=== PATIENT | male | born 1965 | race Caucasian/White ===

== ENCOUNTER 2023-01-04 11:21 | Inpatient (IN) | payer MEDICARE, OTHER ==
[2023-01-04] MEDS ORDERED: Heparin 10,000 UNITS/ 10 ML VIAL ONE (11:40)
[2023-01-04 14:16] VITALS: BMI 46.5
[2023-01-04 15:37] LABS: #Basophils 0.1 thou/uL (0.0-0.2); #Eosinphils 0.3 thou/uL (0.0-0.7); #Lymphocytes 1.9 thou/uL (1.20-3.40); #Monocytes 0.4 thou/uL (0.11-0.59); #Neutrophils 4.3 thou/uL (1.40-6.50); %Basophils 1.3 % (0.0-1.0); %Eosinophils 4.6 % (0.0-10.0); %Lymphocytes 27.2 % (21.0-51.0); %Monocytes 6.1 % (0.0-10.0); %Neutrophils 60.9 % (42.0-75.0); Hemoglobin 12.2 g/dL (14.0-18.0); Mean Corpuscular HGB CONC 35.9 g/dL (32.0-36.0); Mean Corpuscular Hemoglobin 32.4 pg (27.0-31.0); Mean Corpuscular Volume 90.4 fl (78.0-98.0); Mean Platelet Volume 7.2 fL (7.4-10.4); Platelet Count 217 10x3/uL (130-400); RBC Distribution Width 13.2 % (11.5-14.5); Red Blood Cell (RBC) Count 3.77 mill/uL (4.70-6.10)
[2023-01-04 15:57] LABS: Anion Gap 20 mmol/L (10-20); BUN (Urea Nitrogen) 60 mg/dL (8.4-25.7); Calc. Creatinine Clearance 18 mL/min (70-130); Calcium 7.4 mg/dL (7.8-10.44); Carbon Dioxide 16 mmol/L (22-29); Chloride 108 mmol/L (98-107); Estimated GFR 6; Glucose 89 mg/dL (70-105); Sodium 138 mmol/L (136-145)
[2023-01-04 16:02] LABS: Potassium 6.3 mmol/L (3.5-5.1)
[2023-01-04] MEDS ORDERED: Senokot S 8.6-50 MG TAB PO PRN (17:50)
[2023-01-04 19:20] LABS: Hep B Surf Ag Non-Reactive S/CO (NonReactive)
[2023-01-04 19:30] LABS: HBSAB Concentration 216.88 mIU/mL; Hep B Surf AB Reactive (NonReactive)
[2023-01-04] MEDS ORDERED: Azithromycin 250 MG TAB PO SCH (21:00)
[2023-01-05] MEDS: Acetaminophen 325 MG TAB PO PRN ×3 (01:20→20:28)
[2023-01-05 06:49] LABS: Anion Gap 18 mmol/L (10-20); BUN (Urea Nitrogen) 37 mg/dL (8.4-25.7); Calc. Creatinine Clearance 24 mL/min (70-130); Calcium 7.6 mg/dL (7.8-10.44); Carbon Dioxide 17 mmol/L (22-29); Chloride 103 mmol/L (98-107); Estimated GFR 9; Glucose 83 mg/dL (70-105); Potassium 4.3 mmol/L (3.5-5.1); Sodium 134 mmol/L (136-145)
[2023-01-05] MEDS ORDERED: traMADol HCl 50 MG TAB PO PRN (11:18)
[2023-01-05] MEDS: Gabapentin 300 MG CAP PO SCH (20:28)
[2023-01-06 06:02] LABS: Anion Gap 17 mmol/L (10-20); BUN (Urea Nitrogen) 57 mg/dL (8.4-25.7); Calc. Creatinine Clearance 20 mL/min (70-130); Calcium 7.5 mg/dL (7.8-10.44); Carbon Dioxide 20 mmol/L (22-29); Chloride 102 mmol/L (98-107); Estimated GFR 7; Glucose 111 mg/dL (70-105); Potassium 4.6 mmol/L (3.5-5.1); Sodium 134 mmol/L (136-145)
[2023-01-06] MEDS ORDERED: Activase 2 MG VIAL CATH SCH (08:30)
[2023-01-06] MEDS ORDERED: Heparin 10,000 UNITS/ 10 ML VIAL ONE (08:48)
[2023-01-06] MEDS: Aspirin Chewable 81 MG TAB PO SCH (09:12)
[2023-01-06] MEDS ORDERED: Iopamidol 300 61% 100 ML VIAL FS ONE (09:23)
[2023-01-06] MEDS ORDERED: cloNIDine 0.1 MG TAB ONE (11:05)
[2023-01-06] MEDS ORDERED: cloNIDine 0.1 MG TAB PO SCH (11:45)
[2023-01-06] MEDS: Acetaminophen 325 MG TAB PO PRN ×2 (16:38→21:35)
[2023-01-06] MEDS: Loperamide HCl 2 MG CAP PO PRN ×2 (17:38→21:35)
[2023-01-06] MEDS: Nystatin Powder 15 GM BOT TOP SCH (18:39)
[2023-01-06] MEDS: Gabapentin 300 MG CAP PO SCH (21:34)
[2023-01-07] MEDS: Nystatin Powder 15 GM BOT TOP SCH ×2 (02:59→07:53)
[2023-01-07] MEDS: Loperamide HCl 2 MG CAP PO PRN (05:32)
[2023-01-07] MEDS: Acetaminophen 325 MG TAB PO PRN (05:32)
[2023-01-07 07:01] LABS: Anion Gap 19 mmol/L (10-20); BUN (Urea Nitrogen) 64 mg/dL (8.4-25.7); Calc. Creatinine Clearance 20 mL/min (70-130); Calcium 7.2 mg/dL (7.8-10.44); Carbon Dioxide 17 mmol/L (22-29); Chloride 101 mmol/L (98-107); Estimated GFR 7; Glucose 97 mg/dL (70-105); Potassium 4.2 mmol/L (3.5-5.1); Sodium 133 mmol/L (136-145)
[2023-01-07] MEDS: Aspirin Chewable 81 MG TAB PO SCH (07:53)
[2023-01-07 11:54] VITALS: BP 135/90; TEMP 98.7
== END 2023-01-07 15:05 | disposition home or self-care (01) | DRG 252 ==
LOC: UNDOADMIN 11:21 → SURG A 11:21 → INTOOBSV 13:18 → SURG A 13:18 → OBSVTOIN 01-06 10:14
PROVIDERS: ADMIT Family Medicine; ATTEND Family Medicine
PROC: 5A1D70Z Performance of Urinary Filtration, Intermittent, Less than 6 Hours Per Day (ICD-10-PCS; 2023-01-04)
PROC: 06HY33Z Insertion of Infusion Device into Lower Vein, Percutaneous Approach (ICD-10-PCS; 2023-01-04)
PROC: 05CY3ZZ Extirpation of Matter from Upper Vein, Percutaneous Approach (ICD-10-PCS; principal; 2023-01-06)
PROC: B51W1ZZ Fluoroscopy of Dialysis Shunt/Fistula using Low Osmolar Contrast (ICD-10-PCS; 2023-01-06)
DX: T82.868A Thrombosis due to vascular prosthetic devices, implants and grafts, initial encounter (principal); N18.6 End stage renal disease; I12.0 Hypertensive chronic kidney disease with stage 5 chronic kidney disease or end stage renal disease; Z68.42 Body mass index [BMI] 45.0-49.9, adult; N17.9 Acute kidney failure, unspecified; E87.5 Hyperkalemia; D63.1 Anemia in chronic kidney disease; E66.9 Obesity, unspecified; E78.5 Hyperlipidemia, unspecified; J98.8 Other specified respiratory disorders; B37.2 Candidiasis of skin and nail; Z99.2 Dependence on renal dialysis; Z79.899 Other long term (current) drug therapy; Z79.82 Long term (current) use of aspirin; Z86.73 Personal history of transient ischemic attack (TIA), and cerebral infarction without residual deficits; Z98.890 Other specified postprocedural states
CPT/HCPCS: 36415; 36416; 36901; 36905; 80048; 85025; 86706; 87340; C1725; C1757; G0378; J1642; J1644; J2997; Q9967

== ENCOUNTER 2023-02-10 03:48 | Emergency (ER) | payer MEDICARE, OTHER ==
[2023-02-10 04:13] LABS: Actual Bicarbonate (HCO3v) 17.3 mEq/L (22-28); Base Excess -8.7 mEq/L (-2.0 to +3.0); Calcium, Ionized (venous) 0.85 mmol/L (1.16-1.32); Chloride (VBG) 106 mmol/L (98-106); Hematocrit-VBG 31 % (42.0-52.0); Hemoglobin (Hb) 10.4 g/dL (13.1-17.2); Potassium (VBG) 5.09 mmol/L (3.70-5.30); Sodium 140.1 mmol/L (133-146); pH (venous) 7.279 (7.32-7.43)
[2023-02-10 04:26] LABS: #Basophils 0.1 thou/uL (0.0-0.2); #Eosinphils 0.2 thou/uL (0.0-0.7); #Lymphocytes 1.4 thou/uL (1.20-3.40); #Monocytes 0.4 thou/uL (0.11-0.59); #Neutrophils 4.7 thou/uL (1.40-6.50); %Basophils 0.9 % (0.0-1.0); %Eosinophils 3.6 % (0.0-10.0); %Lymphocytes 19.9 % (21.0-51.0); %Monocytes 5.9 % (0.0-10.0); %Neutrophils 69.6 % (42.0-75.0); Hemoglobin 10.3 g/dL (14.0-18.0); Mean Corpuscular HGB CONC 35.8 g/dL (32.0-36.0); Mean Corpuscular Hemoglobin 31.6 pg (27.0-31.0); Mean Corpuscular Volume 88.3 fl (78.0-98.0); Platelet Count 208 10x3/uL (130-400); RBC Distribution Width 13.7 % (11.5-14.5); Red Blood Cell (RBC) Count 3.26 mill/uL (4.70-6.10); White Blood Cell (WBC) Count 6.8 10x3/uL (4.8-10.8)
[2023-02-10 04:40] LABS: ALT (SGPT) 9 U/L (8-55); AST (SGOT) 12 U/L (5-34); Albumin 4.2 g/dL (3.5-5.0); Alkaline Phosphatase 108 U/L (40-110); Anion Gap 22 mmol/L (10-20); BUN (Urea Nitrogen) 92 mg/dL (8.4-25.7); Bilirubin, Total 0.6 mg/dL (0.2-1.2); Calc. Creatinine Clearance 0 mL/min (70-130); Carbon Dioxide 16 mmol/L (22-29); Chloride 108 mmol/L (98-107); Estimated GFR 5; Globulin 2.6 g/dL (2.4-3.5); Glucose 103 mg/dL (70-105); Potassium 5.2 mmol/L (3.5-5.1); Protein, Total 6.8 g/dL (6.0-8.3); Sodium 141 mmol/L (136-145)
[2023-02-10 05:02] LABS: CKMB 4.4 ng/mL (0-6.6)
[2023-02-10] MEDS ORDERED: Acetaminophen 500 MG TAB ONE (08:07)
[2023-02-10] MEDS ORDERED: Heparin 10,000 UNITS/ 10 ML VIAL ONE (08:29)
[2023-02-10 08:59] LABS: HBSAg Index 0.18 S/CO (0-0.99); Hep B Core Total Ab Non-Reactive (NonReactive); Hep B Core Total Index 0.08 S/CO (0-0.79); Hep B Surf Ag Non-Reactive S/CO (NonReactive); Hep C IgG Ab Non-Reactive S/CO (NonReactive); Hep C Index 0.15 S/CO (0-0.79)
[2023-02-10 09:11] LABS: HBSAB Concentration 249.66 mIU/mL; Hep B Surf AB Reactive (NonReactive)
== END 2023-02-10 14:54 | disposition home or self-care (01) ==
LOC: ERS 03:48
DX: E87.70 Fluid overload, unspecified (principal); I12.0 Hypertensive chronic kidney disease with stage 5 chronic kidney disease or end stage renal disease; N18.6 End stage renal disease; Z99.2 Dependence on renal dialysis
CPT/HCPCS: 36415; 71045; 80053; 82553; 82805; 83880; 84484; 85025; 86704; 90935; 93005; G0257; J1644

== ENCOUNTER 2023-02-14 16:55 | Inpatient (IN) | payer OTHER ==
[2023-02-14 18:40] LABS: #Basophils 0.1 thou/uL (0.0-0.2); #Eosinphils 0.3 thou/uL (0.0-0.7); #Monocytes 0.6 thou/uL (0.11-0.59); #Neutrophils 5.6 thou/uL (1.40-6.50); %Basophils 0.6 % (0.0-1.0); %Eosinophils 3.1 % (0.0-10.0); %Lymphocytes 18.6 % (21.0-51.0); %Monocytes 7.6 % (0.0-10.0); %Neutrophils 69.7 % (42.0-75.0); Hemoglobin 10.3 g/dL (14.0-18.0); Mean Corpuscular HGB CONC 33.6 g/dL (32.0-36.0); Mean Corpuscular Hemoglobin 29.8 pg (27.0-31.0); Mean Corpuscular Volume 88.7 fl (78.0-98.0); Mean Platelet Volume 9.5 fL (7.4-10.4); Platelet Count 210 10x3/uL (130-400); RBC Distribution Width 14.1 % (11.5-14.5); Red Blood Cell (RBC) Count 3.46 mill/uL (4.70-6.10); White Blood Cell (WBC) Count 8.1 10x3/uL (4.8-10.8)
[2023-02-14 18:58] LABS: Phosphorus 6.8 mg/dL (2.3-4.7)
[2023-02-14 19:04] LABS: ALT (SGPT) Less than 7 U/L (8-55); AST (SGOT) 12 U/L (5-34); Alkaline Phosphatase 100 U/L (40-110); Anion Gap 20 mmol/L (10-20); BUN (Urea Nitrogen) 51 mg/dL (8.4-25.7); Bilirubin, Total 0.5 mg/dL (0.2-1.2); Calc. Creatinine Clearance 0 mL/min (70-130); Calcium 7.2 mg/dL (7.8-10.44); Carbon Dioxide 21 mmol/L (22-29); Chloride 104 mmol/L (98-107); Estimated GFR 6; Globulin 2.7 g/dL (2.4-3.5); Glucose 82 mg/dL (70-105); Potassium 4.5 mmol/L (3.5-5.1); Protein, Total 6.7 g/dL (6.0-8.3); Sodium 140 mmol/L (136-145)
[2023-02-14] MEDS ORDERED: Acetaminophen 650 MG Suppository PR PRN (19:19)
[2023-02-14] MEDS ORDERED: Ondansetron ODT 4 MG TAB PO PRN (19:19)
[2023-02-14] MEDS ORDERED: Ondansetron PF 4 MG/2 ML Vial IVP PRN (19:19)
[2023-02-14 21:18] VITALS: BMI 49.3
[2023-02-14] MEDS ORDERED: cloNIDine 0.3 MG TAB PO PRN ×2 (22:04→22:20)
[2023-02-14] MEDS ORDERED: Gabapentin 300 MG CAP PO SCH (22:15)
[2023-02-14] MEDS: Acetaminophen 325 MG TAB PO PRN (23:28)
[2023-02-15 06:32] LABS: #Basophils 0.1 thou/uL (0.0-0.2); #Eosinphils 0.3 thou/uL (0.0-0.7); #Monocytes 0.5 thou/uL (0.11-0.59); #Neutrophils 4.2 thou/uL (1.40-6.50); %Basophils 0.8 % (0.0-1.0); %Eosinophils 4.8 % (0.0-10.0); %Lymphocytes 22.5 % (21.0-51.0); %Monocytes 7.1 % (0.0-10.0); %Neutrophils 64.3 % (42.0-75.0); Hemoglobin 10.5 g/dL (14.0-18.0); Mean Corpuscular HGB CONC 33.2 g/dL (32.0-36.0); Mean Corpuscular Hemoglobin 29.5 pg (27.0-31.0); Mean Corpuscular Volume 88.8 fl (78.0-98.0); Mean Platelet Volume 9.6 fL (7.4-10.4); Platelet Count 204 10x3/uL (130-400); RBC Distribution Width 13.8 % (11.5-14.5); Red Blood Cell (RBC) Count 3.56 mill/uL (4.70-6.10); White Blood Cell (WBC) Count 6.5 10x3/uL (4.8-10.8)
[2023-02-15 07:22] LABS: Anion Gap 18 mmol/L (10-20); BUN (Urea Nitrogen) 54 mg/dL (8.4-25.7); Calc. Creatinine Clearance 17 mL/min (70-130); Calcium 7.1 mg/dL (7.8-10.44); Carbon Dioxide 20 mmol/L (22-29); Chloride 104 mmol/L (98-107); Estimated GFR 5; Glucose 98 mg/dL (70-105); Potassium 5.1 mmol/L (3.5-5.1); Sodium 137 mmol/L (136-145)
[2023-02-15] MEDS: Aspirin Chewable 81 MG TAB PO SCH (09:07)
[2023-02-15] MEDS: Acetaminophen 325 MG TAB PO PRN (20:30)
[2023-02-15] MEDS: Gabapentin 300 MG CAP PO SCH (23:03)
[2023-02-16] MEDS: Acetaminophen 325 MG TAB PO PRN ×3 (05:38→23:50)
[2023-02-16] MEDS: Aspirin Chewable 81 MG TAB PO SCH (08:09)
[2023-02-16] MEDS: Gabapentin 300 MG CAP PO SCH (20:30)
[2023-02-17 06:58] LABS: #Basophils 0.1 thou/uL (0.0-0.2); #Eosinphils 0.3 thou/uL (0.0-0.7); #Monocytes 0.6 thou/uL (0.11-0.59); #Neutrophils 6.6 thou/uL (1.40-6.50); %Basophils 0.9 % (0.0-1.0); %Eosinophils 3.3 % (0.0-10.0); %Lymphocytes 13.8 % (21.0-51.0); %Monocytes 6.7 % (0.0-10.0); %Neutrophils 74.8 % (42.0-75.0); Mean Corpuscular HGB CONC 31.8 g/dL (32.0-36.0); Mean Corpuscular Hemoglobin 28.6 pg (27.0-31.0); Mean Corpuscular Volume 89.7 fl (78.0-98.0); Mean Platelet Volume 9.9 fL (7.4-10.4); Platelet Count 179 10x3/uL (130-400); RBC Distribution Width 13.6 % (11.5-14.5); White Blood Cell (WBC) Count 8.8 10x3/uL (4.8-10.8)
[2023-02-17 07:21] LABS: Anion Gap 17 mmol/L (10-20); BUN (Urea Nitrogen) 56 mg/dL (8.4-25.7); Calc. Creatinine Clearance 20 mL/min (70-130); Calcium 7.1 mg/dL (7.8-10.44); Carbon Dioxide 19 mmol/L (22-29); Chloride 105 mmol/L (98-107); Estimated GFR 6; Glucose 99 mg/dL (70-105); Potassium 5.3 mmol/L (3.5-5.1); Sodium 136 mmol/L (136-145)
[2023-02-17 07:41] LABS: INR-International Normal Ratio 1.1; PTT 34.5 sec (22.9-36.1); Prothrombin Time 14.4 sec (12.0-14.7)
[2023-02-17] MEDS: Aspirin Chewable 81 MG TAB PO SCH (09:37)
[2023-02-17] MEDS ORDERED: Sterile Water 10 ML VIAL IVP SCH (11:00)
[2023-02-17] MEDS ORDERED: Activase 2 MG VIAL CATH SCH (11:00)
[2023-02-17] MEDS: Dextrose 5 % And 0.9 % NaCl 1,000 ML IV SCH (13:16)
[2023-02-17] MEDS: Acetaminophen 325 MG TAB PO PRN (22:14)
[2023-02-17] MEDS: Gabapentin 300 MG CAP PO SCH (22:16)
[2023-02-17] MEDS ORDERED: Aspirin 81 mg Enteric Coated Tablet PO SCH (22:30)
[2023-02-17] MEDS ORDERED: Aluminum & Magnesium Hydroxide 60 ML, diphenhydrAMINE 150 MG, Lidocaine 2% Viscous Solu... SSW PRN (23:46)
[2023-02-18] MEDS: Benzonatate 100 MG CAP PO PRN ×3 (09:46→23:29)
[2023-02-18] MEDS: Aspirin Chewable 81 MG TAB PO SCH (09:46)
[2023-02-18] MEDS: Dextrose 5 % And 0.9 % NaCl 1,000 ML IV SCH (09:47)
[2023-02-18] MEDS: Acetaminophen 325 MG TAB PO PRN (15:14)
[2023-02-18] MEDS: Albuterol 200 PUFF (6.7GM INHALER) INH SCH (18:53)
[2023-02-18] MEDS: Amoxicillin/Potassium Clav 250 MG TAB PO SCH (20:45)
[2023-02-18] MEDS: Gabapentin 300 MG CAP PO SCH (20:46)
[2023-02-18] MEDS: Mupirocin 2% Ointment 22 GM Tube TOP SCH (23:29)
[2023-02-19] MEDS ORDERED: Sodium Chloride 0.65% Nasal 44 ML BOT EA NARE PRN (00:05)
[2023-02-19] MEDS ORDERED: Loratadine 10 MG TAB PO PRN (00:05)
[2023-02-19] MEDS: Acetaminophen 325 MG TAB PO PRN ×2 (01:37→23:21)
[2023-02-19] MEDS: Benzonatate 100 MG CAP PO PRN ×2 (05:26→21:02)
[2023-02-19] MEDS: Albuterol 200 PUFF (6.7GM INHALER) INH SCH ×4 (08:12→23:42)
[2023-02-19] MEDS: Amoxicillin/Potassium Clav 250 MG TAB PO SCH ×4 (10:36→20:57)
[2023-02-19] MEDS: Aspirin Chewable 81 MG TAB PO SCH ×3 (10:36→12:19)
[2023-02-19] MEDS: Mupirocin 2% Ointment 22 GM Tube TOP SCH ×3 (10:37→20:57)
[2023-02-19 19:42] LABS: SARS-CoV-2 NAA Rapid Test Not Detected (NotDetected)
[2023-02-19] MEDS: Gabapentin 300 MG CAP PO SCH (20:57)
[2023-02-20] MEDS: Albuterol 200 PUFF (6.7GM INHALER) INH SCH ×2 (06:34→12:02)
[2023-02-20] MEDS: Aspirin Chewable 81 MG TAB PO SCH ×2 (08:04→09:10)
[2023-02-20] MEDS: Acetaminophen 325 MG TAB PO PRN (08:04)
[2023-02-20] MEDS: Amoxicillin/Potassium Clav 250 MG TAB PO SCH ×2 (08:04→09:08)
[2023-02-20] MEDS: Benzonatate 100 MG CAP PO PRN (09:08)
[2023-02-20] MEDS: Mupirocin 2% Ointment 22 GM Tube TOP SCH (09:08)
[2023-02-20 15:46] VITALS: TEMP 97.9
[2023-02-20 16:56] VITALS: BP 125/77
== END 2023-02-20 17:41 | disposition home or self-care (01) | DRG 252 ==
LOC: ERS 16:55 → T4-B 19:17 → INTOOBSV 19:17 → OBSVTOIN 02-16 12:27
PROVIDERS: ADMIT Student in an Organized Health Care Education/Training Program; ATTEND Internal Medicine
PROC: 06HY33Z Insertion of Infusion Device into Lower Vein, Percutaneous Approach (ICD-10-PCS; 2023-02-15)
PROC: 5A1D70Z Performance of Urinary Filtration, Intermittent, Less than 6 Hours Per Day (ICD-10-PCS; 2023-02-15)
PROC: 037Y3ZZ Dilation of Upper Artery, Percutaneous Approach (ICD-10-PCS; principal; 2023-02-17)
PROC: 03CY3ZZ Extirpation of Matter from Upper Artery, Percutaneous Approach (ICD-10-PCS; 2023-02-17)
DX: T82.868A Thrombosis due to vascular prosthetic devices, implants and grafts, initial encounter (principal); N18.6 End stage renal disease; I12.0 Hypertensive chronic kidney disease with stage 5 chronic kidney disease or end stage renal disease; Z68.42 Body mass index [BMI] 45.0-49.9, adult; N25.81 Secondary hyperparathyroidism of renal origin; N17.9 Acute kidney failure, unspecified; Y84.1 Kidney dialysis as the cause of abnormal reaction of the patient, or of later complication, without mention of misadventure at the time of the procedure; D63.1 Anemia in chronic kidney disease; E83.39 Other disorders of phosphorus metabolism; E66.01 Morbid (severe) obesity due to excess calories; Z99.2 Dependence on renal dialysis; Z79.82 Long term (current) use of aspirin; Z79.51 Long term (current) use of inhaled steroids; Z79.899 Other long term (current) drug therapy
CPT/HCPCS: 36415; 36901; 36905; 71045; 80048; 80053; 83735; 84100; 85025; 85610; 85730; 87633; 90935; 93931; C1725; C1757; G0257; G0378; J2405; J7042; Q0163